=== PATIENT | female | born 1960 ===

== ENCOUNTER → 2021-08-30 | Outpatient (CLI) | payer BC ==
[~2021-08-30] VITALS: Ht 160 cm; Wt 61.2 kg
[~2021-08-30] MED LIST: ADENOSINE 51 MG in GIVE UN-DILUTED 0 ML IV STA
[2021-08-30 09:50] VITALS: BP 121/68
== END | disposition home or self-care (01) ==
LOC: XY 09:13
PROVIDERS: ATTEND Internal Medicine
DX: R00.2 Palpitations (principal)
CPT/HCPCS: 78452; 93017; A9500; J0153

== ENCOUNTER → 2021-09-01 | Outpatient (CLI) | payer BC ==
[~2021-09-01] MED LIST changes: -ADENOSINE 51 MG in GIVE UN-DILUTED 0 ML IV STA; +IOHEXOL 350 MG/ML 100ML IJ ONE; +METOPROLOL TARTRATE 1MG/1ML-5ML VIAL IV ONE; +METOPROLOL TARTRATE 1MG/1ML-5ML VIAL IV SCH; +NITROGLYCERIN 0.4 MG SL TAB SL ONE
== END | disposition home or self-care (01) ==
LOC: CT 12:17
PROVIDERS: ATTEND Internal Medicine
DX: R00.2 Palpitations (principal); R07.9 Chest pain, unspecified
CPT/HCPCS: 75571; 75574; Q9967